=== PATIENT | female | born 1940 ===

== ENCOUNTER 2017-06-06 13:32 | Inpatient (IN) | payer OTHER ==
[~2017-06-06] VITALS: Ht 167.6 cm; Wt 210.0 kg
[~2017-06-06 13:32] MED LIST: HYDROCHLOROTHIA25 MG; LISINOPRIL20 MG PO; PRILOSEC20 MG PO; PROAIR HFA8.5 GM; ZOCOR40 MG PO
== END 2017-06-24 20:42 | disposition expired | DRG 180 ==
LOC: ER 13:32 → MEDI 06-07 05:56
PROC: 3E0F7GC Introduction of Other Therapeutic Substance into Respiratory Tract, Via Natural or Artificial Opening (ICD-10-PCS; principal; 2017-06-07)
PROC: B246ZZZ Ultrasonography of Right and Left Heart (ICD-10-PCS; 2017-06-07)
PROC: 4A12X4Z Monitoring of Cardiac Electrical Activity, External Approach (ICD-10-PCS; 2017-06-07)
PROC: 0W993ZX Drainage of Right Pleural Cavity, Percutaneous Approach, Diagnostic (ICD-10-PCS; 2017-06-09)
PROC: 0W993ZX Drainage of Right Pleural Cavity, Percutaneous Approach, Diagnostic (ICD-10-PCS; 2017-06-19)
PROC: 4A033R1 Measurement of Arterial Saturation, Peripheral, Percutaneous Approach (ICD-10-PCS; 2017-06-22)
DX: C34.11 Malignant neoplasm of upper lobe, right bronchus or lung (principal); J18.9 Pneumonia, unspecified organism; I50.33 Acute on chronic diastolic (congestive) heart failure; C78.2 Secondary malignant neoplasm of pleura; J91.0 Malignant pleural effusion; J44.1 Chronic obstructive pulmonary disease with (acute) exacerbation; I48.0 Paroxysmal atrial fibrillation; I27.29 Other secondary pulmonary hypertension; Z74.01 Bed confinement status; Z66 Do not resuscitate; R09.02 Hypoxemia